=== PATIENT | male | born 1950 | race African-American/Black ===

== ENCOUNTER 2021-09-21 19:33 | Emergency (ER) | payer MEDICARE ==
[~2021-09-21] VITALS: Ht 177.8 cm; Wt 85.5 kg
[2021-09-21 20:20] LABS: BASOPHILS % 0.5 % (0.0-2.0); EOSINOPHILS % 1.3 % (0.0-5.0); HEMATOCRIT. 42.8 % (42.0-52.0); HEMOGLOBIN. 14.2 g/dL (14.0-18.0); LYMPHOCYTES % 9.7 % (20.0-50.0); MEAN CORPUSCULAR HEMOGLOBIN 27.3 pg (28.0-32.0); MEAN CORPUSCULAR VOLUME 82.2 fL (80.0-94.0); MEAN PLATELET VOLUME 8.2 fl (7.4-10.4); MONOCYTES % 6.3 % (2.0-8.0); NEUTROPHILS % 82.2 % (40.0-76.0); PLATELET 161 x1000/uL (130-400); RED CELL DISTRIBUTION WIDTH 16.5 % (11.6-14.6)
[2021-09-21 20:21] LABS: CHLORIDE 105 mEq/L (98-107)
[2021-09-21 20:25] LABS: ETHANOL BLOOD < 10 mg/dL
[2021-09-21] MEDS ORDERED: SODIUM CHLORIDE 0.9% 1,000 ML IV ONE (21:00)
[2021-09-21 21:13] LABS: CLARITY URINE CLEAR (CLEAR); COLOR URINE DARK YELLOW (YELLOW); KETONES URINE TRACE (NEGATIVE); LEUKOCYTE ESTERASE URINE NEGATIVE (NEGATIVE); NITRITE URINE NEGATIVE (NEGATIVE); OCCULT BLOOD URINE NEGATIVE (NEGATIVE); PROTEIN URINE NEGATIVE (NEGATIVE); UROBILINOGEN URINE 0.2 E.U./dL (0.2-1.0)
[2021-09-21] MEDS ORDERED: ESMOLOL 2500MG PREMIX 250 ML IV ONE ×2 (21:15)
[2021-09-21] MEDS ORDERED: MORPHINE SULFATE 2 MG/ML CPJ (NOT FOR IM USE) IV ONE ×2 (21:15→22:15)
[2021-09-21] MEDS ORDERED: LABETALOL 5MG/ML SYR 20 MG/4 ML SYRINGE IV NR (21:15)
[2021-09-21 21:32] LABS: *AMPHETAMINES SCREEN URINE NEGATIVE (NEGATIVE); *BARBITURATES SCREEN URINE NEGATIVE (NEGATIVE); *BENZODIAZEPINES SCREEN URINE NEGATIVE (NEGATIVE); METHADONE URINE SCREEN NEGATIVE (NEGATIVE); OPIATES URINE SCREEN NEGATIVE (NEGATIVE)
[2021-09-21 21:33] LABS: *COCAINE SCREEN URINE NEGATIVE (NEGATIVE); CANNABINOID URINE SCREEN NEGATIVE (NEGATIVE); PHENCYCLIDINE URINE SCREEN NEGATIVE (NEGATIVE)
[2021-09-21] MEDS ORDERED: NICARDIPINE 40MG/200ML PREMIX 200 ML IV ONE (22:15)
[2021-09-21 22:35] VITALS: BP 118/74
[2021-09-21 22:39] LABS: PROTHROMBIN TIME 41.9 sec (9.6-11.0)
[2021-09-21 22:53] LABS: INR 4.4
[2021-09-21] MEDS ORDERED: IOHEXOL-350 100 ML BOTTLE ONE (23:37)
== END 2021-09-21 23:03 | disposition short-term general hospital (02) ==
LOC: ER 19:33 → CANBEDREQ 09-22 17:07
DX: I71.01 Dissection of thoracic aorta (principal); E87.6 Hypokalemia; N28.9 Disorder of kidney and ureter, unspecified; I11.9 Hypertensive heart disease without heart failure; Z95.4 Presence of other heart-valve replacement; Z20.822 Contact with and (suspected) exposure to COVID-19
CPT/HCPCS: 36415; 70450; 70496; 70498; 71045; 71275; 74174; 80053; 80305; 80320; 81003; 82962; 84484; 85025; 85610; 87426; 93005; 96365; 96366; 96375; 96376; 99291; J2270; J3490; Q9967; G0480

== ENCOUNTER 2023-11-08 04:25 | Emergency (ER) | payer BC ==
[~2023-11-08] VITALS: Ht 167.6 cm; Wt 55.0 kg
[2023-11-08 04:34] VITALS: O2SAT 94
[2023-11-08 10:03] VITALS: BP 100/56; PULSE 69; RESP 16; TEMP 98.8
== END 2023-11-08 10:40 | disposition home or self-care (01) ==
LOC: ER 04:25
DX: Z96.651 Presence of right artificial knee joint (principal); I10 Essential (primary) hypertension; Z00.00 Encounter for general adult medical examination without abnormal findings; Z98.890 Other specified postprocedural states
CPT/HCPCS: 99283